=== PATIENT | male | born 1990 | race African-American/Black ===

== ENCOUNTER 2017-11-16 00:58 | Emergency (ER) | payer BC ==
[2017-11-16] MEDS ORDERED: diphenhydrAMINE 50 MG CAP ONE (01:27)
== END 2017-11-16 03:00 | disposition home or self-care (01) ==
LOC: ERS 00:58
DX: T78.40XA Allergy, unspecified, initial encounter (principal)
CPT/HCPCS: 99283

== ENCOUNTER 2020-01-24 22:09 | Emergency (ER) | payer BC, OTHER ==
[2020-01-24] MEDS ORDERED: Acetaminophen 500 MG TAB ONE (22:30)
[2020-01-24] MEDS ORDERED: guaiFENesin/Codeine Phosphate 200 mg/20 mg 10 ml UD Cup PO SCH (22:45)
--- NOTE | 2020-01-24 23:07 | RAD ---
Chest AP view INDICATION: Chills cough and generalized weakness; Covid testing pending COMPARISON: None FINDINGS: Lungs: There is hazy airspace opacity seen within the left midlung. Right lung is clear. Cardiac silhouette: The cardiomediastinal silhouette appears within normal limits. Pulmonary vasculature: Normal Pleural spaces: No pleural effusion or pneumothorax is demonstrated. Upper abdomen: No abnormality seen. Osseous structures: No acute osseous abnormality. Additional findings: None. IMPRESSION: Hazy airspace opacity within the left midlung. This pattern certainly can be seen with Covid 19 respi ratory infections. The right lung is clear.
== END 2020-01-25 01:00 | disposition home or self-care (01) ==
LOC: ERS 22:09
DX: J18.9 Pneumonia, unspecified organism (principal); Z20.828 Contact with and (suspected) exposure to other viral communicable diseases
CPT/HCPCS: 71045; 87635; 99283; U0003

== ENCOUNTER 2020-05-19 08:15 | Emergency (ER) | payer BC, OTHER, SELFPAY | END 2020-05-19 09:22 | disposition home or self-care (01) | LOC: ERS 08:15 | DX: J39.9 Disease of upper respiratory tract, unspecified (principal); Z86.19 Personal history of other infectious and parasitic diseases | CPT/HCPCS: 87804; 99283 ==

== ENCOUNTER 2024-05-02 23:44 | Emergency (ER) | payer SELFPAY ==
[2024-05-03] MEDS ORDERED: HYDROcodone/Acetaminophen 10/325 mg Tablet ONE (00:33)
== END 2024-05-03 00:38 | disposition home or self-care (01) ==
LOC: ERS 23:44
DX: K04.7 Periapical abscess without sinus (principal)
CPT/HCPCS: 99282